=== PATIENT | male | born 1975 | race Two or more races ===

== ENCOUNTER 2022-02-14 08:16 | Emergency (ER) | payer SELFPAY ==
[~2022-02-14] VITALS: Ht 180.3 cm; Wt 81.6 kg
[2022-02-14] MEDS ORDERED: SODIUM CHLORIDE 0.9% 1,000 ML IV ONE (09:00)
[2022-02-14 09:34] LABS: Amphetamine Screen, Urine POSITIVE (NEGATIVE); Barbiturate Scree,Urine NEGATIVE (NEGATIVE); Benzodiazephine Screen, Urine NEGATIVE (NEGATIVE); Cannabinoid Screen, Urine NEGATIVE (NEGATIVE); Cocaine Screen, Urine NEGATIVE (NEGATIVE); Opiate Scree,Urine NEGATIVE (NEGATIVE); Phencyclidine Screen, Urine NEGATIVE (NEGATIVE)
[2022-02-14 09:44] LABS: Basophils # (auto) 0 10 ^3/uL (0-0.2); Basophils % (auto) 0.5 % (0.0-2.0); Eosinophils # (auto) 0.1 10 ^3/uL (0-0.8); Eosinophils % (auto) 2.6 % (0.0-7.0); Hematocrit 41.6 % (41.0-53.0); Hemoglobin 14.2 g/dL (13.5-17.5); Lymphocytes # (auto) 1.9 10 ^3/uL (0.4-5.4); Lymphocytes % (auto) 35.3 % (10.0-50.0); Mean Corpuscular Hemoglobin 28.2 pg (28.0-32.0); Mean Corpuscular Hgb Conc. 34.1 g/dL (32.0-36.0); Mean Corpuscular Volume 82.8 fL (80.0-100.0); Monocytes # (auto) 0.4 10 ^3/uL (0-1.3); Neutrophils # (auto) 2.8 10 ^3/uL (1.6-8.6); Neutrophils % (auto) 53.6 % (37.0-80.0); Nucleated Red Blood Cells % 0.3 %; Red Blood Cells 5.03 10^6/uL (4.5-5.90); Red Cell Distribution Width 14.8 % (11.8-14.3); White Blood Cell 5.3 10^3/uL (4.4-10.8)
[2022-02-14 11:10] LABS: Calcium 8.2 mg/dL (8.5-10.1); Potassium 4.1 mmol/L (3.5-5.1)
[2022-02-14 11:13] LABS: Albumin 3.2 g/dL (3.4-5.0); BUN/Creatinine Ratio 13.6
[2022-02-14 11:18] LABS: Bilirubin, Total 0.3 mg/dL (0.2-1.0); Total Protein 6.3 g/dL (6.4-8.2)
[2022-02-14 11:45] VITALS: BP 119/80
== END 2022-02-14 11:45 | disposition home or self-care (01) ==
LOC: ER 08:16 → EDBD 08:16 → ER 11:45
DX: R56.9 Unspecified convulsions (principal); F15.10 Other stimulant abuse, uncomplicated
CPT/HCPCS: 36415; 70450; 80053; 80307; 84484; 85025; 93005; 96360; 99285; J7030

== ENCOUNTER 2022-04-11 08:40 | Emergency (ER) | payer SELFPAY ==
[~2022-04-11] VITALS: Ht 175.3 cm; Wt 88.5 kg
[2022-04-11] MEDS ORDERED: IBUPROFEN 800 MG TAB PO ONE (09:45)
[2022-04-11 10:02] VITALS: BP 149/83
== END 2022-04-11 10:08 | disposition home or self-care (01) ==
LOC: EDUNIT# 08:40 → ER 08:40 → EDBD 08:40 → ER 10:08
DX: R51.9 Headache, unspecified (principal)